=== PATIENT | male | born 1950 | race Caucasian/White ===

== ENCOUNTER 2021-10-22 18:38 | Emergency (ER) | payer MEDICARE ==
[~2021-10-22] VITALS: Ht 182.9 cm; Wt 86.2 kg
[2021-10-22 19:06] LABS: BASOPHILS ABSOLUTE AUTO 0.07 K/mm3 (0.00-0.23); BASOPHILS PERCENT AUTO 1 % (0-2); EOSINOPHILS ABSOLUTE AUTO 0.36 K/mm3 (0.00-0.68); EOSINOPHILS PERCENT AUTO 4 % (0-6); Hematocrit 48.1 % (37.0-53.0); Hemoglobin 15.7 g/dL (13.5-17.5); IMMATURE GRAN ABSOLUTE AUTO 0.06 K/mm3 (0.00-0.10); IMMATURE GRAN PERCENT AUTO 1 % (0-1); LYMPHOCYTES ABSOLUTE AUTO 2.48 K/mm3 (0.84-5.20); LYMPHOCYTES PERCENT AUTO 31 % (21-46); MONOCYTES ABSOLUTE AUTO 0.77 K/mm3 (0.16-1.47); MONOCYTES PERCENT AUTO 10 % (4-13); Mean Corpuscular HGB 29.8 pg (26.0-34.0); Mean Corpuscular HGB Conc 32.6 g/dL (31.5-36.5); Mean Corpuscular Volume 91 fL (80-100); Mean Platelet Volume 10.3 fL (9.1-12.4); NEUTROPHILS ABSOLUTE AUTO 4.38 K/mm3 (1.96-9.15); NEUTROPHILS PERCENT AUTO 54 % (41-73); Platelet Count 294 K/mm3 (150-400); RDW Standard Deviation 46.9 fL (35.1-46.3); Red Blood Cell Count 5.27 M/mm3 (4.30-5.90); White Blood Cell Count 8.12 K/mm3 (4.00-11.30)
[2021-10-22 19:11] LABS: International Normalized Ratio 1.06; Prothrombin Time Results 11.1 Sec (9.7-11.5)
[2021-10-22 19:23] LABS: Albumin, Blood 3.5 g/dL (3.4-5.0); Albumin/Globulin Ratio 0.9 (0.8-1.8); Bilirubin, Total 0.6 mg/dL (0.1-1.0); Bun/Creatinine Ratio 18.5 (12.0-20.0); Calcium, Blood 9.2 mg/dL (8.5-10.1); Creatinine, Blood 1.08 mg/dL (0.60-1.20); Potassium, Blood 4.1 mmol/L (3.5-5.5); Total Protein, Blood 7.5 g/dL (6.4-8.2)
[2021-10-22] MEDS ORDERED: XARELTO1 EAC1 PO (20:36)
== END 2021-10-22 22:57 | disposition home or self-care (01) ==
LOC: ER 18:38
PROVIDERS: Physician Assistant
DX: G45.9 Transient cerebral ischemic attack, unspecified (principal); I11.0 Hypertensive heart disease with heart failure; I50.9 Heart failure, unspecified; I48.91 Unspecified atrial fibrillation; Z87.891 Personal history of nicotine dependence; Z96.649 Presence of unspecified artificial hip joint; Z79.01 Long term (current) use of anticoagulants
CPT/HCPCS: 70450; 70496; 70498; 80053; 82947; 85025; 85610; 85730; 93005; 93010; 99285-25; A9270; Q9967

== ENCOUNTER 2023-06-07 09:47 | Emergency (ER) | payer OTHER ==
[~2023-06-07] VITALS: Ht 182.9 cm; Wt 83.5 kg
[~2023-06-07 09:47] MED LIST: XARELTO1 EAC1 PO
[2023-06-07 10:57] LABS: BASOPHILS ABSOLUTE AUTO 0.09 K/mm3 (0.00-0.23); BASOPHILS PERCENT AUTO 1 % (0-2); EOSINOPHILS PERCENT AUTO 5 % (0-6); Hematocrit 47.4 % (37.0-53.0); Hemoglobin 15.7 g/dL (13.5-17.5); IMMATURE GRAN ABSOLUTE AUTO 0.14 K/mm3 (0.00-0.10); IMMATURE GRAN PERCENT AUTO 2 % (0-1); LYMPHOCYTES ABSOLUTE AUTO 2.04 K/mm3 (0.84-5.20); LYMPHOCYTES PERCENT AUTO 23 % (21-46); MONOCYTES ABSOLUTE AUTO 0.69 K/mm3 (0.16-1.47); MONOCYTES PERCENT AUTO 8 % (4-13); Mean Corpuscular HGB 28.2 pg (26.0-34.0); Mean Corpuscular HGB Conc 33.1 g/dL (31.5-36.5); Mean Corpuscular Volume 85 fL (80-100); Mean Platelet Volume 11.4 fL (9.1-12.4); NEUTROPHILS ABSOLUTE AUTO 5.52 K/mm3 (1.96-9.15); NEUTROPHILS PERCENT AUTO 62 % (41-73); Platelet Count 277 K/mm3 (150-400); RDW Coefficient Variation 15.3 % (11.7-14.2); RDW Standard Deviation 46.9 fL (35.1-46.3); Red Blood Cell Count 5.57 M/mm3 (4.30-5.90); White Blood Cell Count 8.88 K/mm3 (4.00-11.30)
[2023-06-07 11:05] LABS: Calcium, Ionized (POC) 1.08 mmol/L (1.10-1.46); Chloride (POC) 109 mmol/L (98-108); Creatinine (POC) 1.3 mg/dL (0.8-1.3); Glucose (ISTAT POC) 109 mg/dL (70-99); Hemoglobin (POC) 15.3 g/dL (13.5-17.5); Potassium (POC) 6.8 mmol/L (3.5-5.5); Sodium (POC) 136 mmol/L (135-148); Total CO2 (POC) 22 mmol/L (21-32)
[2023-06-07 11:15] LABS: Calcium, Ionized (POC) 1.15 mmol/L (1.10-1.46); Chloride (POC) 108 mmol/L (98-108); Creatinine (POC) 1.3 mg/dL (0.8-1.3); Glucose (ISTAT POC) 126 mg/dL (70-99); Hemoglobin (POC) 13.9 g/dL (13.5-17.5); Sodium (POC) 138 mmol/L (135-148); Total CO2 (POC) 21 mmol/L (21-32)
[2023-06-07] MEDS ORDERED: LIPITOR80 MG PO (11:21)
[2023-06-07] MEDS ORDERED: ZOLOFT10013 PO (11:22)
[2023-06-07] MEDS ORDERED: LISINOPRIL2.5 MG PO (11:22)
[2023-06-07] MEDS ORDERED: PLAVIX75 MG PO (11:26)
[2023-06-07 11:32] LABS: SARS-Cov-2 (COVID-19) PCR, MMC NEGATIVE (NEGATIVE)
[2023-06-07 11:40] LABS: Influenza A Negative (NEGATIVE); Influenza B Negative (NEGATIVE)
[2023-06-07 11:56] LABS: Albumin, Blood 3.4 g/dL (3.4-5.0); Albumin/Globulin Ratio 0.8 (0.8-1.8); Bilirubin, Total 0.6 mg/dL (0.1-1.0); Bun/Creatinine Ratio 15.8 (12.0-20.0); Calcium, Blood 9.4 mg/dL (8.5-10.1); Creatinine, Blood 1.33 mg/dL (0.60-1.20); Globulin, Blood 4.1 g/dL (2.2-4.0); Potassium, Blood 5.7 mmol/L (3.5-5.5); Total Protein, Blood 7.5 g/dL (6.4-8.2)
[2023-06-07 13:30] VITALS: BP 99/74
== END 2023-06-07 13:43 | disposition home or self-care (01) ==
LOC: ER 09:47
PROVIDERS: Student in an Organized Health Care Education/Training Program
DX: I95.9 Hypotension, unspecified (principal); N17.9 Acute kidney failure, unspecified; I48.91 Unspecified atrial fibrillation; R79.89 Other specified abnormal findings of blood chemistry; I50.42 Chronic combined systolic (congestive) and diastolic (congestive) heart failure; Z79.02 Long term (current) use of antithrombotics/antiplatelets; Z79.01 Long term (current) use of anticoagulants; Z79.899 Other long term (current) drug therapy
CPT/HCPCS: 71045; 80047; 80053; 83735; 83880; 84484; 85014; 85025; 87804; 87807; 92960; 93005; 93010; 96374-59; 99285-25; J3010; J3475; J7030; U0002

== ENCOUNTER 2023-06-26 10:24 | Emergency (ER) | payer OTHER ==
[~2023-06-26] VITALS: Ht 177.8 cm; Wt 68.0 kg
[~2023-06-26 10:24] MED LIST changes: +LIPITOR80 MG PO; +LISINOPRIL2.5 MG PO; +PLAVIX75 MG PO; +ZOLOFT10013 PO
[2023-06-26 11:10] LABS: BASOPHILS ABSOLUTE AUTO 0.05 K/mm3 (0.00-0.23); BASOPHILS PERCENT AUTO 1 % (0-2); EOSINOPHILS ABSOLUTE AUTO 0.41 K/mm3 (0.00-0.68); EOSINOPHILS PERCENT AUTO 7 % (0-6); Hematocrit 43.6 % (37.0-53.0); Hemoglobin 15.3 g/dL (13.5-17.5); IMMATURE GRAN ABSOLUTE AUTO 0.08 K/mm3 (0.00-0.10); IMMATURE GRAN PERCENT AUTO 1 % (0-1); LYMPHOCYTES ABSOLUTE AUTO 2.02 K/mm3 (0.84-5.20); LYMPHOCYTES PERCENT AUTO 33 % (21-46); MONOCYTES ABSOLUTE AUTO 0.48 K/mm3 (0.16-1.47); MONOCYTES PERCENT AUTO 8 % (4-13); Mean Corpuscular HGB 28.1 pg (26.0-34.0); Mean Corpuscular HGB Conc 35.1 g/dL (31.5-36.5); Mean Corpuscular Volume 80 fL (80-100); Mean Platelet Volume 9.7 fL (9.1-12.4); NEUTROPHILS ABSOLUTE AUTO 3.02 K/mm3 (1.96-9.15); NEUTROPHILS PERCENT AUTO 50 % (41-73); Platelet Count 248 K/mm3 (150-400); RDW Coefficient Variation 14.3 % (11.7-14.2); RDW Standard Deviation 41.3 fL (35.1-46.3); Red Blood Cell Count 5.45 M/mm3 (4.30-5.90); White Blood Cell Count 6.06 K/mm3 (4.00-11.30)
[2023-06-26 11:30] LABS: Albumin, Blood 3.2 g/dL (3.4-5.0); Albumin/Globulin Ratio 0.7 (0.8-1.8); Bilirubin, Total 0.6 mg/dL (0.1-1.0); Bun/Creatinine Ratio 18.9 (12.0-20.0); Calcium, Blood 9.4 mg/dL (8.5-10.1); Creatinine, Blood 1.22 mg/dL (0.60-1.20); Globulin, Blood 4.4 g/dL (2.2-4.0); Magnesium, Blood 1.9 mg/dL (1.6-2.4); Potassium, Blood 4.3 mmol/L (3.5-5.5); Total Protein, Blood 7.6 g/dL (6.4-8.2)
[2023-06-26 13:29] VITALS: BP 102/79
[2023-06-26] MEDS ORDERED: Magnesium Sulf 2 GM/Water 50ML 50 ML IV ONE (14:50)
[2023-06-26] MEDS ORDERED: Thiamine HCl 100 MG in NS 50 ML IV ONE (14:50)
[2023-06-26] MEDS ORDERED: Ketorolac Tromethamine 15mg Vial IV ONE (14:50)
[2023-06-26] MEDS ORDERED: NS 1,000 ML IV SCH (15:20)
== END 2023-06-26 18:00 | disposition home or self-care (01) ==
LOC: ER 10:24
PROVIDERS: Physician Assistant
DX: E27.8 Other specified disorders of adrenal gland (principal); R53.83 Other fatigue; Z79.899 Other long term (current) drug therapy; I48.91 Unspecified atrial fibrillation
CPT/HCPCS: 71046; 74177; 80053; 83735; 83880; 84100; 84484; 85025; 93005; 93010; 96361; 96365-59; 96366; 96375; 99285-25; J1885; J3411; J3475; J7030; Q9967

== ENCOUNTER 2023-06-28 09:33 | Inpatient (IN) | payer OTHER ==
[~2023-06-28] VITALS: Ht 182.9 cm; Wt 80.2 kg
[2023-06-28] VITALS (19 sets, daily range): BP systolic 73–104; BP diastolic 50–74
[2023-06-28] MEDS ORDERED: NS 1,000 ML IV SCH (10:10)
[2023-06-28 10:13] LABS: BASOPHILS ABSOLUTE AUTO 0.05 K/mm3 (0.00-0.23); BASOPHILS PERCENT AUTO 1 % (0-2); EOSINOPHILS ABSOLUTE AUTO 0.38 K/mm3 (0.00-0.68); EOSINOPHILS PERCENT AUTO 6 % (0-6); Hematocrit 43.4 % (37.0-53.0); Hemoglobin 14.7 g/dL (13.5-17.5); IMMATURE GRAN ABSOLUTE AUTO 0.06 K/mm3 (0.00-0.10); IMMATURE GRAN PERCENT AUTO 1 % (0-1); LYMPHOCYTES ABSOLUTE AUTO 2.25 K/mm3 (0.84-5.20); LYMPHOCYTES PERCENT AUTO 34 % (21-46); MONOCYTES ABSOLUTE AUTO 0.57 K/mm3 (0.16-1.47); MONOCYTES PERCENT AUTO 9 % (4-13); Mean Corpuscular HGB 27.7 pg (26.0-34.0); Mean Corpuscular HGB Conc 33.9 g/dL (31.5-36.5); Mean Corpuscular Volume 82 fL (80-100); Mean Platelet Volume 10.1 fL (9.1-12.4); NEUTROPHILS ABSOLUTE AUTO 3.41 K/mm3 (1.96-9.15); NEUTROPHILS PERCENT AUTO 51 % (41-73); Platelet Count 240 K/mm3 (150-400); RDW Coefficient Variation 14.2 % (11.7-14.2); RDW Standard Deviation 42.6 fL (35.1-46.3); White Blood Cell Count 6.72 K/mm3 (4.00-11.30)
[2023-06-28 10:26] LABS: Magnesium, Blood 1.9 mg/dL (1.6-2.4)
[2023-06-28 10:29] LABS: Albumin, Blood 2.9 g/dL (3.4-5.0); Albumin/Globulin Ratio 0.7 (0.8-1.8); Bilirubin, Total 0.9 mg/dL (0.1-1.0); Bun/Creatinine Ratio 15.2 (12.0-20.0); Calcium, Blood 9.1 mg/dL (8.5-10.1); Creatinine, Blood 1.12 mg/dL (0.60-1.20); Globulin, Blood 4.1 g/dL (2.2-4.0); Potassium, Blood 4.3 mmol/L (3.5-5.5); Thyroid Stimulating Hormone 0.891 uIU/mL (0.360-4.800)
[2023-06-28 11:24] LABS: Influenza A, PCR NEGATIVE (NEGATIVE); Influenza B, PCR NEGATIVE (NEGATIVE); Resp Syncytial Virus, PCR NEGATIVE (NEGATIVE); SARS-Cov-2 (COVID-19) PCR, MMC NEGATIVE (NEGATIVE)
[2023-06-28] MEDS ORDERED: FLU VACC QS2023-24(6MOS UP)/PF 60 MCG/0.5 ML SYRINGE IM SCH (13:00)
[2023-06-28 13:05] LABS: Anti-Xa UFH, PHA Monitoring <0.10 IU/mL; International Normalized Ratio 1.14; Prothrombin Time Results 11.9 Sec (9.7-11.5)
[2023-06-28] MEDS ORDERED: Heparin Sodium,Porcine/0.5 NS 500 ML IV SCH (13:30)
[2023-06-28] MEDS ORDERED: Acetaminophen 325 MG TABLET PO PRN (14:20)
[2023-06-28] MEDS ORDERED: OxyCODONE HCL 5 MG TAB PO PRN (14:20)
--- NOTE | 2023-06-28 14:21 | NUR ---
ARRIVAL TO ICU AT 1255 PT ARRIVES VIA GURNEY FROM CT ACCOMPANIED BY ED RN. MOVED TO ICU BED, ZOLL IN PLACE. PT IS A/O, SR, SBP 90'S. ON ROOM AIR. DENIES NAUSEA, BS NORMOACTIVE. HAS NOT VOIDED. SKIN ASSESSED WITH SHUBHAM KESSLER RN. NO BREAKDOWN NOTED. PT HAD ALL TEETH PULLED 2 WEEKS AGO. PIV X2, RIGHT AND LEFT AC. AMIODARONE INFUSING, HEPARIN DRIP STARTED. DR. EPSTEIN TO BEDSIDE TO ASSESS AND DISCUSS CT FINDINGS. AT BEDSIDE, UPDATED ON CURRENT CONDITION. POC ONGOING.
[2023-06-28] MEDS ORDERED: AMOX500 PO (15:37)
[2023-06-28] MEDS ORDERED: IBUP600 PO (15:37)
[2023-06-28] MEDS ORDERED: VITAMIN D350 MC3 PO (15:38)
[2023-06-28] MEDS ORDERED: LORazepam 0.5 MG Tab PO PRN (16:45)
[2023-06-28] MEDS ORDERED: Amiodarone HCl 50 MG / ML 3 ML Amp IV ONE (17:18)
[2023-06-28] MEDS ORDERED: Etomidate 2MG / ML 10ML Vial XX ONE (17:18)
--- NOTE | 2023-06-28 19:28 | NUR ---
SHIFT SUMMARY PT A/O, AT BEDSIDE. SR, BP LOW BUT MAP > 65. OK PER MD. ON ROOM AIR, LUNGS CTA. TRANSIENT NAUSEA BUT RESOLVES QUICKLY. PT STATES HE HAS NOT EATEN A SOLID MEAL IN WEEKS. ONLY TOLERATES SIPS/LIQUIDS. VOIDS USING THE URINAL. SKIN INTACT. PIV X2, BILAT AC, BOTH FLUSH AND WITHDRAW BLOOD WELL. AMIODARONE AND HEPARIN DRIPS INFUSING. DISCUSSION WITH PT ABOUT CODE STATUS, PT WISHES TO BE DNR/DNI. PALLIATIVE CARE CONSULT PLACED. SENIOR MANAGEMENT CONSULTANT DISCUSSED CODE STATUS WITH PT AND HE AND CONFIRM HIS WISHES ARE DNR/DNI. ORDER RECEIVED FROM DR. EPSTEIN FOR UPDATED CODE STATUS. OFFERED SPIRITUAL CARE, PT DECLINES AT THIS TIME. PT WOULD LIKE TO DISCUSS OPTIONS FOR HOSPICE WITH PALLIATIVE CARE TEAM TOMORROW. POC ONGOING.
--- NOTE | 2023-06-28 21:30 | NUR ---
ASSUMED CARE OF PT AT THIS TIME. PT RESTING IN BED WITH NO COMPLAINTS AT THIS TIME.
[2023-06-29] VITALS: BP 101/77
[2023-06-29 00:30] VITALS: BP 85/68
[2023-06-29 03:18] LABS: BASOPHILS ABSOLUTE AUTO 0.03 K/mm3 (0.00-0.23); BASOPHILS PERCENT AUTO 1 % (0-2); EOSINOPHILS ABSOLUTE AUTO 0.33 K/mm3 (0.00-0.68); EOSINOPHILS PERCENT AUTO 7 % (0-6); Hematocrit 38.7 % (37.0-53.0); Hemoglobin 13.3 g/dL (13.5-17.5); IMMATURE GRAN ABSOLUTE AUTO 0.07 K/mm3 (0.00-0.10); IMMATURE GRAN PERCENT AUTO 1 % (0-1); LYMPHOCYTES ABSOLUTE AUTO 1.42 K/mm3 (0.84-5.20); LYMPHOCYTES PERCENT AUTO 29 % (21-46); MONOCYTES ABSOLUTE AUTO 0.42 K/mm3 (0.16-1.47); MONOCYTES PERCENT AUTO 9 % (4-13); Mean Corpuscular HGB 28.5 pg (26.0-34.0); Mean Corpuscular HGB Conc 34.4 g/dL (31.5-36.5); Mean Corpuscular Volume 83 fL (80-100); Mean Platelet Volume 10.4 fL (9.1-12.4); NEUTROPHILS ABSOLUTE AUTO 2.57 K/mm3 (1.96-9.15); NEUTROPHILS PERCENT AUTO 53 % (41-73); Platelet Count 186 K/mm3 (150-400); RDW Coefficient Variation 14.4 % (11.7-14.2); RDW Standard Deviation 43.1 fL (35.1-46.3); Red Blood Cell Count 4.67 M/mm3 (4.30-5.90); White Blood Cell Count 4.84 K/mm3 (4.00-11.30)
[2023-06-29] MEDS ORDERED: Clarify Drug Order XX ONE (03:35)
[2023-06-29 03:39] LABS: Albumin, Blood 2.5 g/dL (3.4-5.0); Albumin/Globulin Ratio 0.7 (0.8-1.8); Bilirubin, Total 0.6 mg/dL (0.1-1.0); Bun/Creatinine Ratio 13.2 (12.0-20.0); Calcium, Blood 8.5 mg/dL (8.5-10.1); Creatinine, Blood 0.99 mg/dL (0.60-1.20); Globulin, Blood 3.4 g/dL (2.2-4.0); Magnesium, Blood 1.9 mg/dL (1.6-2.4); Phosphorus, Blood 3.3 mg/dL (2.5-4.9); Total Protein, Blood 5.9 g/dL (6.4-8.2)
--- NOTE | 2023-06-29 05:13 | NUR ---
SHIFT SUMMARY PT RESTED MOST OF THE NIGHT. CONTINUES A/O WITH ABILITY TO LET NEEDS KNOWN. SINUS MARINA WHILE SLEEPING. RA WITH SPO2 >93% C/O RIGHT KNEE PAIN. MEDICATED PER EMAR. NO OTHER ACUTE CHANGES TO REPORT. WILL CONTINUE TO MONITOR UNTIL REPORT GIVEN.
[2023-06-29] MEDS ORDERED: Pantoprazole Sodium 40 MG Tab PO SCH (06:00)
[2023-06-29] MEDS ORDERED: OxyCODONE HCl Soln 20 MG/ML 1 ML Oral SYR SL PRN (07:55)
[2023-06-29] MEDS ORDERED: LORazepam 1 MG Tab PO PRN (07:55)
[2023-06-29] MEDS ORDERED: LORazepam 2 MG/ML 1ML Injection IV PRN (07:55)
[2023-06-29] MEDS ORDERED: Aspirin 81 MG Chew PO SCH (09:00)
[2023-06-29] MEDS ORDERED: Sertraline HCl 100 MG Tab PO SCH (09:00)
--- NOTE | 2023-06-29 13:03 | NUR ---
DISCHARGE HOME AT 1245 PT TO GO HOME ON HOSPICE. [facility] APPOINTMENT TOMORROW AT 0900. DISCHARGE PACKET REVIEWED WITH PT AND AT BEDSIDE. ALL QUESTIONS ANSWERED AND EMOTIONAL SUPPORT PROVIDED. MEDICATION ORDERS FAXED TO [facility] PER PT REQUEST. HAND WRITTEN PRESCRIPTIONS X2 GIVEN TO PT AND INSTRUCTED HER TO PRESENT THEM TO THE PHARMACY. PT ASSISTED WITH DRESSING AND BOTH PIV'S REMOVED. TAKEN TO 'S VEHICLE VIA W/C BY PCT WITH ALL BELONGINGS.
== END 2023-06-29 12:45 | disposition hospice, home (50) | DRG 281 ==
LOC: ER 09:33 → ICUE 09:34
PROVIDERS: Student in an Organized Health Care Education/Training Program; ADMIT Family Medicine
PROC: 5A2204Z Restoration of Cardiac Rhythm, Single (ICD-10-PCS; principal; 2023-06-28)
DX: I47.20 Ventricular tachycardia, unspecified (principal); I21.A1 Myocardial infarction type 2; C34.31 Malignant neoplasm of lower lobe, right bronchus or lung; E87.1 Hypo-osmolality and hyponatremia; I50.42 Chronic combined systolic (congestive) and diastolic (congestive) heart failure; I11.0 Hypertensive heart disease with heart failure; D50.9 Iron deficiency anemia, unspecified; K22.70 Barrett's esophagus without dysplasia; K21.9 Gastro-esophageal reflux disease without esophagitis; F32.A Depression, unspecified; F10.10 Alcohol abuse, uncomplicated; I48.92 Unspecified atrial flutter; E86.0 Dehydration; I45.10 Unspecified right bundle-branch block; E78.5 Hyperlipidemia, unspecified; R91.1 Solitary pulmonary nodule; Z51.5 Encounter for palliative care; Z79.02 Long term (current) use of antithrombotics/antiplatelets; Z79.811 Long term (current) use of aromatase inhibitors; Z79.899 Other long term (current) drug therapy; Z79.01 Long term (current) use of anticoagulants; Z87.81 Personal history of (healed) traumatic fracture; Z11.52 Encounter for screening for COVID-19
CPT/HCPCS: 0241U; 36415; 71045; 71260; 80053; 83605; 83735; 83880; 84100; 84443; 84484; 85025; 85520; 85610; 85730; 93005; 93010; 96374-59; 99291-25; A9270; J0282; J1644; J2060; J7030; J7060; Q9967